=== PATIENT | male | born 1960 | race Caucasian/White ===

== ENCOUNTER 2025-01-16 09:09 | Day surgery (SDC) | payer BC, SELFPAY ==
[2025-01-16] VITALS (20 sets, daily range): BP systolic 134–157; BP diastolic 74–101; BMI 33.1
[2025-01-16 09:33] LABS: Glucose - Point of Care 117 mg/dl (70-99)
[2025-01-16] MEDS: PLAVIX 75 MG PO (10:06)
--- NOTE | 2025-01-16 13:54 | ITS.CL.ANGIO ---
[facility] - Angioplasty
Angioplasty
Procedure Report:
LEFT HEART CATHETERIZATION
Date of Procedure: January 16, 2025
Procedures performed:
1: Percutaneous coronary intervention of the chronically occluded right coronary artery with placement of a 2.75 x 34 mm Attalla drug-eluting stent postdilated at high pressure with a 3.0 mm diameter noncompliant balloon using intravascular ultrasound
guidance
2: Percutaneous coronary intervention of the left circumflex artery with placement of a 2.25 x 22 mm Star drug-eluting stent postdilated at high pressure with a 2.5 mm diameter noncompliant balloon
Primary Care Physician: Liliana Tineo MD
Referring legal archivist: Dr. Neto Hall
INDICATION: The patient is a 64-year-old man with a past medical history significant diabetes, hypertension, and alcohol abuse who presented to [facility] with epiglottitis on January 08, 2005 with septic shock and ultimately respiratory and
renal failure. During his critical illness he developed polymorphic ventricular tachycardia requiring defibrillation on January 10 and had elevated cardiac enzymes after that event. Echo before and after his episode of ventricular arrhythmia was
preserved. EKGs were not diagnostic of an acute coronary syndrome. He subsequently made a remarkable clinical recovery and was extubated and renal function returned. He underwent coronary angiography yesterday at [facility] which
revealed two-vessel obstructive disease with a
ACCESS: The patient was prepped and draped in usual sterile fashion. A 6 Mauritanian sheath was placed in the right common femoral artery using the Seldinger over the wire technique. Ultrasound and micropuncture kit was utilized.
HEMODYNAMIC FINDINGS (mmHg):
LV(s/d,EDP): Valve not crossed
Ao(s/d,m): 118/69, 89
ANGIOGRAPHIC FINDINGS:
Single-plane Left Ventriculography in NAVARRO Projection: Not done. Normal LV function by recent echo's.
Coronary Angiography:
Please refer to full diagnostic study performed yesterday at [facility] listed below:
Dominance: Right
Left Main: Ostial 20% stenosis with ostial calcification noted.
Left Anterior Descending: The left anterior descending artery is a medium caliber vessel that gives rise to 1 major high diagonal branch. These vessels have diffuse mild nonobstructive luminal irregularities with normal distal flow.
Left Circumflex: The left circumflex is a medium to large caliber nondominant system that gives rise to 2 major obtuse marginal branches. The first obtuse marginal branch is a large-caliber vessel that has mild ostial disease with MARVIN-3 distal
flow. The second obtuse marginal branch has a smooth proximal 70 to 80% stenosis involving the takeoff of a minor smaller branch. The distal vessels have MARVIN-3 flow.
Right Coronary: The right coronary artery is a large-caliber vessel proximally that has a calcified smooth 40% mid stenosis followed by a 99% stenosis just after the takeoff of the widely patent RV marginal branch. There is faint antegrade flow
filling the distal vessel. There is brisk competitive flow from left to right collaterals filling a large dominant distal RCA system.
Percutaneous Coronary Intervention (PCI) of right coronary artery: The patient was pretreated with aspirin and Plavix. Unfractionated heparin was given. In light of the challenging RCA takeoff I chose a 6 [place]ian AL 0.75 guide. Attempts to pass a
Hi-Torque floppy wire across the preocclusive stenosis were not successful. That wire was positioned in the RV marginal branch to leighann it. Attempts were then made with a Fielder XT which were unsuccessful. Next, a Industrial Retrofit Designer 50 was used with the
assistance of a [employer] QuickCross microcatheter to ultimately traverse the subtotal occlusion. The QuickCross was used to inject distally to prove intraluminal position. The Industrial Retrofit Designer was exchanged for a long Extra S'port wire. Predilation was
performed with a 2.0 mm diameter balloon which restored antegrade flow. This was done in a distal to proximal fashion. Next a 2.75 x 34 mm Attalla drug-eluting stent was advanced to the lesion. At this point guide support was very poor and I ended
up deploying the stent more proximal than I had hoped. The stent was postdilated with a 3.0 mm diameter noncompliant balloon at 16 dilshad distally and 18 dilshad in the mid and proximal segments. There was approximately 8 mm of the stent which extended
into the proximal aneurysmally dilated ectatic artery. Intravascular imaging documented that the stent size distally was appropriate with excellent stent apposition in the treated segment. Unfortunately this confirmed that the proximal portion of
the stent is floating in the ectatic aneurysmal segment. I considered dilating this or even placing another larger stent but was concerned that the ectatic vessel was still too large to accommodate the largest stent available.
FINAL RESULT: 0% in-stent residual stenosis with a good angiographic result and MARVIN-3 flow in the distal dominant right coronary artery. There is a long area of 50-60% disease in the distal right coronary artery that extends into the ostium of the
posterior descending artery. This would be challenging to treat in the future as wiring through the stent would probably end up through the side strut of the proximal floating stent.
PCI of the circumflex artery: I then turned my attention to the left circumflex. A 6 Mauritanian XB 3.5 guiding catheter was used to engage the left main. Again the Hi-Torque floppy wire was used in an effort to cross the distal lesion. A 6 [place]ian
Guideliner was also employed to get better selective angiography of the distal vessel. This revealed that the stenosis was much more severe than I previously thought based on yesterday's angiogram and rather than being 70 to 80% stenotic was closer
to 95% stenotic. In fact there was a resting flow abnormality distally with MARVIN II flow. Initial attempts to wire resulted in the wire directing into the smaller distal OM. This wire was left in place. Further attempts with a air force pilot 50 and the
Fielder XT were also unsuccessful to get into the larger distal vessel. At this point I chose to take a 2.0 mm balloon and dilate into the smaller branch at 2 dilshad. Fortunately follow-up angiography showed improved flow into both distal vessels. A
Hi-Torque floppy wire was then successfully advanced into the larger distal vessel. Predilation was performed with a 2.0 mm diameter balloon restoring MARVIN-3 flow distally. A 2.25 x 22 mm Star stent was then deployed into the larger distal vessel
after the jailed wire into the smaller bifurcation vessel was pulled back. Follow-up angiography revealed intact flow into both vessels. The stented segment was postdilated at 16 dilshad with a 2.5 mm diameter noncompliant balloon and distal to
proximal fashion taking care to stay within the stented margins.
FINAL RESULT: 0% in-stent residual stenosis with an excellent angiographic result and MARVIN-3 flow in both the stented and jailed branch vessel.
Fluoroscopy Time (min): 34
Radiation Dose (mGy): 25O2
DAP (Gy.cm2): 100
Closure device: 6 Mauritanian Angio-Seal to right common femoral artery.
Complications: None.
ASSESSMENT:
1: Successful complex PCI of the subtotally occluded right and high-grade distal circumflex lesions as described above with placement of 2 drug-eluting stents.
2: Uncomplicated femoral access closed with a 6 Mauritanian Angio-Seal.
CONCLUSIONS and RECOMMENDATIONS:
1: Routine post drug-eluting stent medical therapy and monitoring. The patient will need dual antiplatelet therapy with aspirin and clopidogrel 75 mg daily uninterrupted ideally for a year. Aspirin 81 mg daily indefinitely.
2: Medical therapy for coronary artery disease, hypertension, dyslipidemia, and diabetes mellitus.
Alek Montilla M.D.
[2025-01-16 14:10] LABS: Glucose - Point of Care 149 mg/dl (70-99)
== END 2025-01-16 17:35 | disposition short-term general hospital (02) ==
LOC: CATH 09:09
PROVIDERS: ATTENDING PHYSICIAN Internal Medicine Interventional Cardiology; FAMILY PHYSICIAN Family Medicine
DX: I25.10 Atherosclerotic heart disease of native coronary artery without angina pectoris (principal); Z95.5 Presence of coronary angioplasty implant and graft; T82.855A Stenosis of coronary artery stent, initial encounter; Z79.02 Long term (current) use of antithrombotics/antiplatelets; Z79.82 Long term (current) use of aspirin; E11.9 Type 2 diabetes mellitus without complications; I10 Essential (primary) hypertension; I47.20 Ventricular tachycardia, unspecified
CPT/HCPCS: 82962; 85347; 92978; 93005; C1725; C1753; C1760; C1769; C1874; C1887; C1894; C9600; Q9967